=== PATIENT | male | born 1995 | race Two or more races ===

== ENCOUNTER 2022-12-11 02:11 | Emergency (ER) | payer BC, OTHER ==
[~2022-12-11] VITALS: Ht 182.9 cm; Wt 113.1 kg
[2022-12-11 06:34] VITALS: BP 172/105
[2022-12-11] MEDS ORDERED: FLUORESCEIN SOD OPTH TEST STRIP OP ONE (07:30)
[2022-12-11] MEDS ORDERED: CIP03OS RIGHTEYE (07:49)
== END 2022-12-11 07:54 | disposition home or self-care (01) ==
LOC: ER 02:11
DX: S05.01XA Injury of conjunctiva and corneal abrasion without foreign body, right eye, initial encounter (principal); H10.31 Unspecified acute conjunctivitis, right eye; X58.XXXA Exposure to other specified factors, initial encounter; Y93.89 Activity, other specified; Y92.89 Other specified places as the place of occurrence of the external cause; Y99.8 Other external cause status